=== PATIENT | female | born 1950 ===

== ENCOUNTER → 2024-06-11 12:22 | Outpatient (REF) | payer MEDICARE, OTHER, SELFPAY | LOC: SDSPAT 12:22 | PROVIDERS: ATTENDING PHYSICIAN Obstetrics & Gynecology Gynecologic Oncology; FAMILY PHYSICIAN Family Medicine Sports Medicine | DX: C54.1 Malignant neoplasm of endometrium (principal) | CPT/HCPCS: 36415; 86850; 86900; 86901 ==

== ENCOUNTER 2024-06-24 06:07 | Day surgery (SDC) | payer MEDICARE, OTHER, SELFPAY ==
[2024-06-11 13:07] VITALS: BMI 40.9
--- NOTE | 2024-06-22 15:11 | W.CON.GYNONC ---
Chief Complaint
-
Endometrial Ca
History of Present Illness
73�year�old�woman�referred�to�me�by�Dr.�Ranucci,�who�had�initially�presented�with�uterine�bleeding.�Patient�reports�that�she�has�had
on�and�off�spotting�and�light�discharge�dating�back�to�2018.�In�2022�she�had�ultrasound�May�16,�2021�which�showed�uterus�7�cm,
endometrium�was�4.8�mm�in�thickness.�She�does�not�recall�having�a�biopsy�previously.�In�Marta�she�felt�that�there�was�significant bleeding.�She�contacted�her�primary�physician�Dr.�Ross�who�ordered�a�CT�scan.
CT�of�pelvis�enhanced�dated�Marta��shows�no�definable�uterine�mass�lesions�seen,�endometrium�difficult�to�see�there�is no�lymphadenopathy�or�acute�abnormality�of�bowel�present.
Pap�smear�dated�February�5�was�negative�cytology,�high�risk�HPV�was�negative Endometrial�biopsy�February��shows�complex�atypical�hyperplasia�cannot�rule�out�early�adenocarcinoma.�
Ultrasound�[facility]�pelvis[facility]at[facility]�February��shows�uterus�7.9�x�3.4�x�4.7�cm�endometrium�measuring 1.8�cm,�right�and�left�ovary�are�not�seen�there�is�no�masses�or�free�fluid�in�the�posterior�cul�de�sac
Past�medical�history�includes�hypothyroidism,�type�2�diabetes,�hypertension,�sleep�apnea,�left�bundle�branch�block,�heart�murmur
Allergies Anemia Asthma Diabetes GERD Heart�Murmur Hypertension Hyperlipidemia Heart�attack CPAP,�sleep�Apnea Polymyalgia Left�Bundle�branch�block�(Heart�Attack)
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
She�is�up�to�date�with�mammography,�she�is�due�for�a�colonoscopy�prior�colonoscopy�was�negative
Medical History
Allergies
Allergies reflect when allergies were last updated in [facility]meee.
cat dander Allergy (Verified 06/17/24 12:49)
congestion
codeine Allergy (Verified 06/17/24 12:49)
Vomiting
house dust mite Allergy (Verified 06/17/24 12:49)
congestion
Opioids - Morphine Analogues Allergy (Verified 06/17/24 12:49)
Vomiting
stevioside [From Stevia] Allergy (Verified 06/17/24 12:49)
intolerant to artificial sweetners
Physical Exam
Physical Exam
Pelvic Examination:
External normal labia, urethra, anus.
Vagina: Normal mucosa.
Cervix: normal appearance, no discharge.
Uterus: normal size.
Adnexa: No pelvic mass.
RVE: no masses or nodularity
General: Well developed, well nourished patient. In no acute distress.
Neck: No thyromegaly. No cervical lymphadenopathy.
Lungs: Clear to auscultation. Good air movement bilaterally.
Cardiac: Regular rate. Regular rhythm. No murmurs appreciated.
Right Breast: No masses or dimpling. No nipple discharge.
Left Breast: No masses or dimpling. No nipple discharge.
Abdomen: Abdomen is soft. obese, Non�tender to palpation. Non�distended.
Extremities: No edema.
Hematologic/Lymphatic: No palpable lymphadenopathy.
Musculoskeletal: Normal range of motion. Strength and Tone are normal.
Skin:Non�jaundiced. No petechia. No purpura.
Neurologic: Speech is fluent. Normal gait and station. Cranial nerves intact.
Results
-
[facility] Department of Radiology [address] [place] [address] PAGE 2 OF 3 Patient Name: ORION GARZA Date of : 1950
Date of Exam: May 28 2024 8:30AM
Liver: The liver has a nodular undulating contour concerning for cirrhosis. There is evidence of steatosis. There is a 5 mm hypodensity in the left lobe on series 3 image 90. This cannot be characterized on today's exam. In the setting of cirrhosis
and malignancy further evaluation with MRI is recommended.
Biliary Tract/ Gallbladder: There is a polypoid lesion within the gallbladder seen along the nondependent wall measuring 5 mm (series 3 image 110). The wall the gallbladder otherwise appears diffusely thickened. There is no biliary ductal dilation.
Pancreas: Within normal limits Spleen: The spleen measures 14.1 cm in length. Adrenals: Within normal limits
Kidneys: There is symmetric renal cortical enhancement. There is no hydronephrosis. There are a few 2 to 3 mm
nonobstructing calculi within the collecting system of the left kidney.
Gastrointestinal Tract: There is no evidence of small or large bowel obstruction. There is no significant bowel
inflammation.
Peritoneum/Retroperitoneum: There is no free air or fluid.
PELVIS:
Reproductive Organs: No uterine mass is identified on this exam.
Bladder: Within normal limits
Aorta/Vessels: There is mild aortobiiliac of metastatic disease without evidence of aneurysm.
Lymph Nodes: Within normal limits
Abdominal/PelvicWall: Within normal limits
Musculoskeletal: There is grade 1 anterolisthesis of L4 and L5. There is a slight retrolisthesis of L5 on S1.
Multilevel degenerative changes are seen in the spine.1. There are a few small pulmonary nodules measuring up to 4.5 mm in size.
2. The liver has a nodular undulating contour concerning for cirrhosis. There is a 5 mm hypodensity in the left lobe
which cannot be characterized on today's exam. In the setting of cirrhosis and malignancy further evaluation with
MRI is recommended.
3. There is a polypoid lesion within the gallbladder measuring 5 mm. The wall the gallbladder otherwise appears
diffusely thickened. Attention at the time of MRI is recommended.
4. Splenomegaly.
5. Nonobstructing left renal calculi.
Impression / Plan
-
73�year�old with new diagnosis of complex endometrial hyperplasia bordering on endometrial cancer. She has multiple comorbidities
including hypertension, type 2 diabetes, obesity which are the typical risk factors for endometrial cancer.
She has had actually longstanding bleeding and I suspect this problem has been present for some time. We discussed the typical
presentation of endometrial cancer, we discussed incidence and also management. She will need to undergo surgery for definitive
management.
Labs including CMP CBC coagulation studies, anemia labs, CA125 was ordered
CT chest abdomen and pelvis with and oral and IV contrast will be done for baseline staging
Patient is recommended to meet with her director quality assurance Dr. Angelo newton, for preoperative cardiac clearance, I defer to them with respect
to need for ECG echocardiogram or stress test
While she is able to ambulate, her exercise capacity is somewhat low end of recommended walking 30 to 40 minutes daily in
anticipation of upcoming surgery.
Surgery will be scheduled in latter part of June with a plan to perform robotic assisted total laparoscopic hysterectomy bilateral
salpingo�oophorectomy injection of cervix with ICG dye and excision of bilateral pelvic sentinel lymph nodes.
Risks of surgery including infection bleeding injury to adjacent organs DVT pulmonary embolism and cardiovascular complications
were discussed and reviewed
I will meet with the patient postop and advise her of need for any additional adjuvant treatment
All her questions were answered, packet related to perioperative instructions was provided to the patient and informed consent was
signed in the office today
[2024-06-24] VITALS (11 sets, daily range): BP systolic 113–138; BP diastolic 49–74; BMI 40.9
[2024-06-24] MEDS: HEPARIN 5000 UNITS SC (07:12)
[2024-06-24] MEDS: NEURONTIN 300 MG PO (07:12)
[2024-06-24] MEDS: CELEBREX 200 MG PO (07:12)
[2024-06-24] MEDS: TYLENOL 1000 MG PO (07:12)
[2024-06-24 07:28] LABS: Glucose - Point of Care 106 mg/dl (70-99)
[2024-06-24] MEDS: NORMOSOL-R/PLASMALYTE-A 1000 IV (07:35)
[2024-06-24 08:15] LABS: Blood Urea Nitrogen 23 mg/dl (7-17); Calcium 10.1 mg/dl (8.4-10.2); Carbon Dioxide 22 mmol/L (22-30); Chloride 104 mmol/L (98-107); Estimated Creatinine Clearance 72 ml/min; Glucose 126 mg/dl (70-99); Potassium 3.9 mmol/L (3.5-5.1); Sodium 141 mmol/L (135-145); eGFR > 60.00
== END 2024-06-24 13:21 | disposition home or self-care (01) ==
LOC: SDS 06:07
PROVIDERS: Student in an Organized Health Care Education/Training Program; ATTENDING PHYSICIAN Obstetrics & Gynecology Gynecologic Oncology; FAMILY PHYSICIAN Family Medicine Sports Medicine
DX: C54.1 Malignant neoplasm of endometrium (principal); D25.9 Leiomyoma of uterus, unspecified; D27.0 Benign neoplasm of right ovary; N94.89 Other specified conditions associated with female genital organs and menstrual cycle; E66.9 Obesity, unspecified
CPT/HCPCS: 38571; 58571; 38900; 88305; 88307; 88309; 88332; 80048; 82962; 86900; 86901; 88112; 88331; 88341; 88342; 88360